=== PATIENT | female | born 1980 | race Hispanic/Latino ===

== ENCOUNTER 2019-07-08 19:39 | Emergency (ER) | payer MEDICAID | END 2019-07-08 22:14 | disposition home or self-care (01) | LOC: EDH 19:39 | DX: R07.89 Other chest pain (principal); B34.9 Viral infection, unspecified; E11.9 Type 2 diabetes mellitus without complications; F41.9 Anxiety disorder, unspecified; F32.9 Major depressive disorder, single episode, unspecified ==